=== PATIENT | female | born 1965 | race Two or more races ===

== ENCOUNTER 2017-12-20 14:53 | Emergency (ER) | payer MEDICAID ==
[~2017-12-20] VITALS: Ht 172.7 cm; Wt 127.0 kg
[2017-12-20 15:03] VITALS: BP 146/83
== END 2017-12-20 16:25 | disposition home or self-care (01) ==
LOC: ER 14:53
DX: S60.212D Contusion of left wrist, subsequent encounter (principal); I13.0 Hypertensive heart and chronic kidney disease with heart failure and stage 1 through stage 4 chronic kidney disease, or unspecified chronic kidney disease; N18.9 Chronic kidney disease, unspecified; X58.XXXD Exposure to other specified factors, subsequent encounter

== ENCOUNTER 2017-12-29 18:55 | Inpatient (IN) | payer MEDICAID ==
[~2017-12-29] VITALS: Ht 172.7 cm; Wt 130.6 kg
[2017-12-29 19:51] LABS: Basophils # (auto) 0.1 uL; Basophils % (auto) 1.2 % (0.0-2.0); Eosinophils # (auto) 0.2 uL; Eosinophils % (auto) 1.3 % (0.0-7.0); Hematocrit 37.7 % (36.0-46.0); Hemoglobin 12.2 g/dL (12.2-16.2); Lymphocytes # (auto) 0.9 uL; Lymphocytes % (auto) 7.8 % (10.0-50.0); Mean Corpuscular Hemoglobin 28.6 pg (28.0-32.0); Mean Corpuscular Hgb Conc. 32.4 g/dL (32.0-36.0); Mean Corpuscular Volume 88.2 fL (80.0-100.0); Monocytes # (auto) 0.9 uL; Monocytes % (auto) 7.5 % (0.0-12.0); Neutrophils # (auto) 9.7 uL; Neutrophils % (auto) 82.2 % (37.0-80.0); Nucleated Red Blood Cells % 0.1 %; Platelet Count (auto) 314 10^3/uL (140-450); Red Blood Cells 4.28 10^6/uL (4.0-5.20); Red Cell Distribution Width 13.9 % (11.8-14.3); White Blood Cell 11.7 10^3/uL (4.4-10.8)
[2017-12-29 20:07] LABS: Albumin 3.4 g/dL (3.4-5.0); BUN/Creatinine Ratio 7.6; Calcium 8.7 mg/dL (8.5-10.1); Potassium 4.1 mmol/L (3.5-5.1)
[2017-12-29 20:09] LABS: Bilirubin, Total 0.4 mg/dL (0.2-1.0); Total Protein 8.8 g/dL (6.4-8.2)
[2017-12-30] MEDS ORDERED: ONDANSETRON HCL 4 MG/2 ML VIAL IV PRN (03:45)
[2017-12-30] MEDS ORDERED: TEMAZEPAM 15 MG CAP PO PRN (03:45)
[2017-12-30] MEDS ORDERED: ACETAMINOPHEN 325 MG TAB PO PRN (03:45)
[2017-12-30 05:00] VITALS: BP 145/94
[2017-12-30] MEDS ORDERED: FUROSEMIDE 40 MG TAB PO SCH (06:00)
[2017-12-30] MEDS ORDERED: SEVELAMER 800 MG TAB PO SCH (08:00)
[2017-12-30] MEDS ORDERED: SODIUM CHL 0.9% 1000 ML BAG XX ONE (08:15)
[2017-12-30 08:19] LABS: Urine Amorphous Crystal FEW /hpf (None Seen); Urine Bacteria FEW /hpf (None Seen); Urine Blood 1+ /uL (Negative); Urine Specific Gravity 1.012 (1.001-1.035); Urine WBC <1 /hpf (0 - 5)
[2017-12-30 08:50] VITALS: BP 147/96
[2017-12-30] MEDS ORDERED: cloNIDine HCL 0.1 MG TAB PO SCH (10:00)
[2017-12-30] MEDS ORDERED: PANTOPRAZOLE 40 MG TAB PO SCH (10:00)
[2017-12-30] MEDS ORDERED: CARVEDILOL 3.125 MG TAB PO SCH (10:00)
[2017-12-30] MEDS ORDERED: LISINOPRIL 5 MG TAB PO SCH (10:00)
[2017-12-30 12:31] VITALS: BP 130/72
[2017-12-30 12:35] VITALS: BP 130/72
== END 2017-12-30 15:15 | disposition home or self-care (01) | DRG 194 ==
LOC: ER 18:55 → OVERFLOW 18:56 → CENTRAL 12-30 04:48
PROVIDERS: ADMIT Nurse Practitioner; ATTEND Internal Medicine
PROC: 5A1D70Z Performance of Urinary Filtration, Intermittent, Less than 6 Hours Per Day (ICD-10-PCS; principal; 2017-12-30)
DX: I13.2 Hypertensive heart and chronic kidney disease with heart failure and with stage 5 chronic kidney disease, or end stage renal disease (principal); E87.2 Acidosis; N18.6 End stage renal disease; E66.01 Morbid (severe) obesity due to excess calories; D72.829 Elevated white blood cell count, unspecified; M10.9 Gout, unspecified; I50.33 Acute on chronic diastolic (congestive) heart failure; Z68.41 Body mass index [BMI] 40.0-44.9, adult; Z83.3 Family history of diabetes mellitus; Z99.2 Dependence on renal dialysis; Z82.49 Family history of ischemic heart disease and other diseases of the circulatory system; Z80.0 Family history of malignant neoplasm of digestive organs
CPT/HCPCS: 36415; 71045; 80053; 81001; 85025; 87081; 90935; J1642